=== PATIENT | female | born 1950 | race Caucasian/White ===

== ENCOUNTER 2018-07-19 08:36 | Day surgery (SDC) | payer MEDICARE, MEDICAID ==
[2018-07-15 17:12] LABS: ALBUMIN 4.2 G/DL (3.4-5.0); ALBUMIN/GLOBULIN RATIO 1.2 (1.1-1.5); ALKALINE PHOSPHATASE 149 IU/L (46-116); BLOOD UREA NITROGEN 15 MG/DL (7-18); BUN/CREATININE RATIO 16.9 (6.6-38.0); CHLORIDE 96 MMOL/L (99-107); CREATININE 0.89 MG/DL (0.40-0.90); PRE OP ALT 23 U/L (30-65); PRE OP ANION GAP 13 (8-16); PRE OP AST 25 U/L (10-37); PRE OP BILIRUB, TOTAL 0.3 MG/DL (0.0-1.0); PRE OP GLUCOSE 77 MG/DL (70-104); PRE OP POTASSIUM 3.8 MMOL/L (3.4-5.1); PRE OP SODIUM 132 MMOL/L (135-145); TOTAL CARBON DIOXIDE 23.3 MMOL/L (24-32); TOTAL PROTEIN 7.8 G/DL (6.4-8.2); eGFR 63 ML/MIN
[2018-07-15 17:15] LABS: BASOPHILS # (AUTO) 0.1 X10'3 (0-0.2); BASOPHILS % (AUTO) 1.2 % (0-1); EOSINOPHILS # (AUTO) 0.1 X10'3 (0-0.9); EOSINOPHILS % (AUTO) 2.3 % (0-6); LYMPHOCYTES # (AUTO) 1.8 X10'3 (1.1-4.8); LYMPHOCYTES % (AUTO) 29.1 % (21-51); MEAN CORPUSCULAR HEMOGLOBIN 34.4 PG (27.0-31.0); MEAN CORPUSCULAR HGB CONC 34.2 % (33.0-36.5); MEAN CORPUSCULAR VOLUME 100.8 FL (78-98); MEAN PLATELET VOLUME 7.3 FL (7.4-10.4); MONOCYTES # (AUTO) 0.7 X10'3 (0-0.9); MONOCYTES % (AUTO) 11.8 % (2-12); NEUTROPHILS # (AUTO) 3.5 X10'3 (1.8-7.7); NEUTROPHILS % (AUTO) 55.6 % (42-75); PRE OP HEMATOCRIT 39.3 % (35.0-45.0); PRE OP HEMOGLOBIN 13.4 g/dL (12.0-16.0); PRE OP PLATELET COUNT 305 X10'3 (140-440); RED CELL DISTRIBUTION WIDTH 12.5 % (11.5-14.5)
[~2018-07-19] VITALS: Ht 163.8 cm; Wt 49.8 kg
[2018-07-19] VITALS (17 sets, daily range): BP systolic 143–172; BP diastolic 58–82
[~2018-07-19 08:36] MED LIST: AMLO2.5T2 PO; CODE1CAP35 PO; FLUO20CA39 PO; FLUT16SP2 BOTHNARES; GABA-532 PO; LEVO175T2 PO; MONT10TA24 PO; TRAZ-219 PO; albuterol 2.5 MG/3 ML nebule NEB ONE; ceFOXitin 2 GM ADDvantage bag 100 ML IV ONE; famotidine 20mg tablet PO ONE; ringers solution, lacted 1,000 ML IV SCH
[2018-07-19] MEDS ORDERED: ringers solution, lacted 1,000 ML IV SCH ×2 (09:02→12:15)
[2018-07-19] MEDS ORDERED: hydrALAZINE 20mg/ml inj. IV PRN (09:05)
[2018-07-19] MEDS ORDERED: fentaNYL/PF 50MCG/1 ML 2ML syringe IV PRN ×2 (09:05)
[2018-07-19] MEDS ORDERED: ondansetron/PF 4mg/2ml inj IV PRN ×2 (09:05→12:15)
[2018-07-19] MEDS ORDERED: morphine 4 MG/ML inj SYRINge IV PRN ×2 (09:05)
[2018-07-19] MEDS ORDERED: labetalol 20mg/4ml (5mg/ml) syringe IV PRN (09:05)
[2018-07-19] MEDS ORDERED: PANT-47 PO (10:04)
[2018-07-19] MEDS ORDERED: ATRIN IH (10:06)
[2018-07-19] MEDS ORDERED: FLUT1DIS4 INH (10:07)
[2018-07-19] MEDS ORDERED: ATRIN INH (10:10)
[2018-07-19] MEDS ORDERED: clindamycin phosphate 40gm vag cream ONE (10:44)
[2018-07-19] MEDS ORDERED: ceFAZolin 1000mg inj ONE (10:44)
[2018-07-19] MEDS ORDERED: vasoPRESSIN 20 units/ml inj. ONE (10:44)
[2018-07-19] MEDS ORDERED: fluoroscein sod 10% (100mg/ml) 5ml vial ONE (11:07)
[2018-07-19] MEDS ORDERED: sevoflurane 250ml liquid IH ONE (11:07)
[2018-07-19] MEDS ORDERED: dexamethasone sod phosphate 10mg/ml inj ONE (11:07)
[2018-07-19] MEDS ORDERED: fentaNYL/PF 50MCG/1 ML 2ML syringe ONE ×2 (11:10→11:46)
[2018-07-19] MEDS ORDERED: midazolam 2 mg/2 ml injection ONE (11:10)
[2018-07-19] MEDS ORDERED: propofol inj 20 ML IV ONE ×2 (11:11→11:48)
[2018-07-19] MEDS ORDERED: LIDOcaine 2% (20mg/ml) 5ml vial ONE (11:11)
[2018-07-19] MEDS ORDERED: ondansetron/PF 4mg/2ml inj ONE (11:27)
[2018-07-19] MEDS ORDERED: ketorolac tromethamine 15mg/ml inj. IV PRN (12:15)
[2018-07-19] MEDS ORDERED: naloxone 0.4 mg/ml inj IV PRN (12:15)
[2018-07-19] MEDS ORDERED: temazepam 15mg capsule PO PRN (12:15)
[2018-07-19] MEDS ORDERED: HYDROcodone/acetaminophen 5mg/325mg tablet PO PRN (12:15)
[2018-07-19] MEDS ORDERED: CADD PCA waste documentation MC PRN (12:15)
[2018-07-19] MEDS ORDERED: normal saline 500ml IV soln 500 ML IV PRN (12:15)
[2018-07-19] MEDS ORDERED: diphenhydrAMINE 50 mg/ml inj IV PRN (12:15)
[2018-07-19] MEDS: HYDROmorphone/NS 1 mg/ml CADD 50 ML IV SCH ×3 (12:46→17:00)
[2018-07-19] MEDS: gabapentin 300mg capsule PO SCH ×2 (16:19→23:04)
[2018-07-19] MEDS ORDERED: BUDESONIDE 0.25 MG/2 ML AMPUL.NEB IH SCH (20:00)
[2018-07-19] MEDS: traZODone 50mg tablet PO SCH ×2 (20:48→23:04)
[2018-07-19] MEDS: ketorolac tromethamine 15mg/ml inj. IM PRN (20:49)
[2018-07-19] MEDS ORDERED: SALMETEROL IH SCH (21:15)
[2018-07-19] MEDS ORDERED: FLUTICASONE IH SCH (21:15)
[2018-07-19] MEDS: HYDROcodone/acetaminophen 5mg/325mg tablet PO PRN (21:26)
[2018-07-19] MEDS: IPRATROPIUM BROMIDE IH SCH (21:39)
[2018-07-20 00:26] VITALS: BP 138/71
[2018-07-20] MEDS: ketorolac tromethamine 15mg/ml inj. IM PRN (03:16)
[2018-07-20 04:00] VITALS: BP 140/72
[2018-07-20] MEDS: HYDROcodone/acetaminophen 5mg/325mg tablet PO PRN ×2 (05:00→09:50)
[2018-07-20 05:52] LABS: BASOPHILS # (AUTO) 0.1 X10'3 (0-0.2); BASOPHILS % (AUTO) 0.7 % (0-1); EOSINOPHILS # (AUTO) 0.2 X10'3 (0-0.9); EOSINOPHILS % (AUTO) 3.1 % (0-6); HEMATOCRIT 35.4 % (35.0-45.0); HEMOGLOBIN 12.5 g/dl (12.0-16.0); LYMPHOCYTES # (AUTO) 2.2 X10'3 (1.1-4.8); LYMPHOCYTES % (AUTO) 29.7 % (21-51); MEAN CORPUSCULAR HEMOGLOBIN 35.3 PG (27.0-31.0); MEAN CORPUSCULAR HGB CONC 35.3 % (33.0-36.5); MEAN CORPUSCULAR VOLUME 99.9 FL (78-98); MONOCYTES # (AUTO) 0.8 X10'3 (0-0.9); MONOCYTES % (AUTO) 10.7 % (2-12); NEUTROPHILS # (AUTO) 4.2 X10'3 (1.8-7.7); NEUTROPHILS % (AUTO) 55.8 % (42-75); PLATELET COUNT 268 X10'3 (140-440); RED BLOOD COUNT 3.54 X10'6 (4.20-5.60); RED CELL DISTRIBUTION WIDTH 12.7 % (11.5-14.5); WHITE BLOOD COUNT 7.5 X10'3 (4.5-11.0)
[2018-07-20] MEDS ORDERED: levoTHYROXINE 25mcg tablet PO SCH (07:00)
[2018-07-20] MEDS: IPRATROPIUM BROMIDE IH SCH (07:30)
[2018-07-20] MEDS: gabapentin 300mg capsule PO SCH (07:31)
[2018-07-20 08:00] VITALS: BP 128/84
[2018-07-20] MEDS ORDERED: pantoprazole 40mg Tablet.DR PO SCH (08:00)
[2018-07-20] MEDS ORDERED: fluticasone nasal spray 16GM bottle NS SCH (08:00)
[2018-07-20] MEDS ORDERED: FLUoxetine 20mg capsule PO SCH (08:00)
[2018-07-20] MEDS ORDERED: montelukast 10mg tablet PO SCH (08:00)
[2018-07-20] MEDS ORDERED: amLODIPine 2.5mg tablet PO SCH (08:00)
== END 2018-07-20 11:13 | disposition home or self-care (01) ==
LOC: PAS 08:36 → SUR 3N 12:15 → PAS 07-20 11:13
PROVIDERS: ATTEND Specialist
DX: N89.4 Leukoplakia of vagina (principal); N81.11 Cystocele, midline; N39.46 Mixed incontinence; M19.90 Unspecified osteoarthritis, unspecified site; J45.998 Other asthma; G43.909 Migraine, unspecified, not intractable, without status migrainosus; J43.9 Emphysema, unspecified; I25.2 Old myocardial infarction; I10 Essential (primary) hypertension; E03.9 Hypothyroidism, unspecified; F10.21 Alcohol dependence, in remission; K21.9 Gastro-esophageal reflux disease without esophagitis; Z86.74 Personal history of sudden cardiac arrest; Z91.048 Other nonmedicinal substance allergy status; Z87.442 Personal history of urinary calculi; Z79.51 Long term (current) use of inhaled steroids; Z90.711 Acquired absence of uterus with remaining cervical stump; Z86.73 Personal history of transient ischemic attack (TIA), and cerebral infarction without residual deficits; Z79.01 Long term (current) use of anticoagulants; Z86.14 Personal history of Methicillin resistant Staphylococcus aureus infection; Z86.19 Personal history of other infectious and parasitic diseases; Z90.49 Acquired absence of other specified parts of digestive tract; Z90.710 Acquired absence of both cervix and uterus; Z79.891 Long term (current) use of opiate analgesic; Z79.2 Long term (current) use of antibiotics; Z98.890 Other specified postprocedural states; Z79.899 Other long term (current) drug therapy
CPT/HCPCS: 36415; 57240; 57288; 71046; 80053; 85025; 85610; 85730; 86885; 86900; 86901; 94640; 94760; A4315; A4355; C1771; J0690; J0694; J1100; J1170; J1200; J1885; J2001; J2250; J2405; J2704; J3010; J3490; J7030; J7120; 88302; A6250; A7000

== ENCOUNTER 2019-01-31 11:56 | Emergency (ER) | payer MEDICARE, MEDICAID ==
[~2019-01-31] VITALS: Ht 162.6 cm; Wt 48.0 kg
[~2019-01-31 11:56] MED LIST changes: +ATRIN INH; +FLUT1DIS4 INH; +PANT-47 PO; -albuterol 2.5 MG/3 ML nebule NEB ONE; -ceFOXitin 2 GM ADDvantage bag 100 ML IV ONE; -famotidine 20mg tablet PO ONE; -ringers solution, lacted 1,000 ML IV SCH
[2019-01-31] MEDS ORDERED: glucagon, human recombinant 1mg kit IV ONE (12:20)
[2019-01-31] MEDS ORDERED: ondansetron/PF 4mg/2ml inj IV ONE (12:20)
[2019-01-31] MEDS ORDERED: nitroGLYCERIN 0.4mg SUBLingual tab SL PRN (12:25)
[2019-01-31 13:35] VITALS: BP 134/92
[2019-01-31] MEDS ORDERED: MIDAZolam 5mg/5ml vial ONE ×2 (13:40→13:41)
[2019-01-31] MEDS ORDERED: fentaNYL/PF 50MCG/1 ML 2ML syringe ONE (13:40)
[2019-01-31] MEDS ORDERED: LIDOcaine Viscous 15ml cup ONE (13:41)
[2019-01-31 14:10] VITALS: BP 164/78
[2019-01-31 14:20] VITALS: BP 158/87
[2019-01-31 14:30] VITALS: BP 159/95
[2019-01-31 14:35] VITALS: BP 168/88
[2019-01-31 15:27] VITALS: BP 142/71
== END 2019-01-31 15:25 | disposition home or self-care (01) ==
LOC: ER 11:56
DX: T18.128A Food in esophagus causing other injury, initial encounter (principal); I10 Essential (primary) hypertension; J44.9 Chronic obstructive pulmonary disease, unspecified; E03.9 Hypothyroidism, unspecified; G89.29 Other chronic pain; Z87.891 Personal history of nicotine dependence; Z86.73 Personal history of transient ischemic attack (TIA), and cerebral infarction without residual deficits; Z79.899 Other long term (current) drug therapy; X58.XXXA Exposure to other specified factors, initial encounter; Y93.89 Activity, other specified; Y92.89 Other specified places as the place of occurrence of the external cause; Y99.8 Other external cause status
CPT/HCPCS: 43239; 43247; 96374; 96375; 99152; 99285; J1610; J2250; J2405; J3010; J7030; 88305; A4620

== ENCOUNTER 2020-02-12 15:22 | Emergency (ER) | payer MEDICARE, MEDICAID ==
[~2020-02-12] VITALS: Ht 162.6 cm; Wt 60.0 kg
[~2020-02-12 15:22] MED LIST changes: -MONT10TA24 PO; +MONT10TA26 PO; -TRAZ-219 PO; +TRAZ-256 PO
[2020-02-12 17:22] LABS: BASOPHILS # (AUTO) 0.1 X10'3 (0-0.2); BASOPHILS % (AUTO) 0.6 % (0-1); EOSINOPHILS # (AUTO) 0.3 X10'3 (0-0.9); EOSINOPHILS % (AUTO) 2.5 % (0-6); HEMATOCRIT 30.9 % (35.0-45.0); HEMOGLOBIN 10.2 g/dl (12.0-16.0); LYMPHOCYTES # (AUTO) 1.7 X10'3 (1.1-4.8); LYMPHOCYTES % (AUTO) 14.2 % (21-51); MEAN CORPUSCULAR HEMOGLOBIN 31.6 PG (27.0-31.0); MEAN CORPUSCULAR HGB CONC 33.1 g/dL (33.0-36.5); MEAN CORPUSCULAR VOLUME 95.5 FL (78-98); MONOCYTES % (AUTO) 8.6 % (2-12); NEUTROPHILS # (AUTO) 8.6 X10'3 (1.8-7.7); NEUTROPHILS % (AUTO) 74.1 % (42-75); PLATELET COUNT 312 X10'3 (140-440); RED BLOOD COUNT 3.23 X10'6 (4.20-5.60); RED CELL DISTRIBUTION WIDTH 15.4 % (11.5-14.5); WHITE BLOOD COUNT 11.6 X10'3 (4.5-11.0)
[2020-02-12 17:34] LABS: ALANINE AMINOTRANSFERASE 18 U/L (12-78); ALBUMIN 3.1 G/DL (3.4-5.0); ALBUMIN/GLOBULIN RATIO 0.9 (1.1-1.5); ALKALINE PHOSPHATASE 156 IU/L (46-116); ANION GAP 7 (8-16); ASPARTATE AMINO TRANSFERASE 19 U/L (10-37); BILIRUBIN,TOTAL 0.3 MG/DL (0.1-1.0); BLOOD UREA NITROGEN 12 MG/DL (7-18); CALCIUM 8.2 MG/DL (8.5-10.1); CHLORIDE 103 MMOL/L (99-107); CREATININE 0.86 MG/DL (0.40-0.90); GLUCOSE 88 MG/DL (70-104); POTASSIUM 3.7 MMOL/L (3.5-5.1); SODIUM 136 MMOL/L (135-145); TOTAL CARBON DIOXIDE 25.7 MMOL/L (24-32); TOTAL PROTEIN 6.6 G/DL (6.4-8.2); eGFR 65 ML/MIN
[2020-02-12] MEDS ORDERED: IPRA3AMP9 IH (18:17)
[2020-02-12] MEDS ORDERED: AZIT-31 PO (18:17)
[2020-02-12] MEDS ORDERED: GUAI120L55 PO (18:17)
[2020-02-12] MEDS ORDERED: PRED10TA23 PO (18:17)
[2020-02-12] MEDS ORDERED: predniSONE 20 mg tablet PO ONE (18:20)
[2020-02-12 18:46] VITALS: BP 136/83
== END 2020-02-12 18:55 | disposition home or self-care (01) ==
LOC: ER 15:23
DX: J44.1 Chronic obstructive pulmonary disease with (acute) exacerbation (principal); I10 Essential (primary) hypertension; G89.29 Other chronic pain; Z86.73 Personal history of transient ischemic attack (TIA), and cerebral infarction without residual deficits; Z79.2 Long term (current) use of antibiotics; Z79.899 Other long term (current) drug therapy
CPT/HCPCS: 36415; 71045; 80053; 85025; 99284; J7512

== ENCOUNTER 2021-04-18 15:15 | Emergency (ER) | payer MEDICARE, MEDICAID ==
[~2021-04-18] VITALS: Ht 162.6 cm; Wt 54.7 kg
[~2021-04-18 15:15] MED LIST changes: +GUAI120L55 PO; +IPRA3AMP9 IH; -MONT10TA26 PO; +MONT10TA32 PO
[2021-04-18 16:22] LABS: BASOPHILS # (AUTO) 0.1 X10'3 (0-0.2); BASOPHILS % (AUTO) 1.4 % (0-1); EOSINOPHILS # (AUTO) 0.2 X10'3 (0-0.9); EOSINOPHILS % (AUTO) 3.1 % (0-6); HEMATOCRIT 36.7 % (35.0-45.0); HEMOGLOBIN 12.1 g/dl (12.0-16.0); LYMPHOCYTES # (AUTO) 2.2 X10'3 (1.1-4.8); LYMPHOCYTES % (AUTO) 27.7 % (21-51); MEAN CORPUSCULAR HEMOGLOBIN 31.9 PG (27.0-31.0); MEAN CORPUSCULAR HGB CONC 32.8 g/dL (33.0-36.5); MEAN CORPUSCULAR VOLUME 97.2 FL (78-98); MEAN PLATELET VOLUME 7.2 FL (7.4-10.4); NEUTROPHILS # (AUTO) 4.3 X10'3 (1.8-7.7); NEUTROPHILS % (AUTO) 54.8 % (42-75); PLATELET COUNT 404 X10'3 (140-440); RED BLOOD COUNT 3.78 X10'6 (4.20-5.60); RED CELL DISTRIBUTION WIDTH 15.3 % (11.5-14.5); WHITE BLOOD COUNT 7.8 X10'3 (4.5-11.0)
[2021-04-18] MEDS ORDERED: CEPH250T PO (16:32)
[2021-04-18] MEDS ORDERED: DOXY100C76 PO (16:32)
[2021-04-18 16:33] LABS: ALANINE AMINOTRANSFERASE 21 U/L (12-78); ALBUMIN 3.5 G/DL (3.4-5.0); ALKALINE PHOSPHATASE 129 IU/L (46-116); ANION GAP 9 (8-16); ASPARTATE AMINO TRANSFERASE 18 U/L (10-37); BILIRUBIN,TOTAL 0.3 MG/DL (0.1-1.0); BLOOD UREA NITROGEN 12 MG/DL (7-18); BUN/CREATININE RATIO 14.1 (6.6-38.0); CALCIUM 8.3 MG/DL (8.5-10.1); CHLORIDE 100 MMOL/L (99-107); CREATININE 0.85 MG/DL (0.40-0.90); GLUCOSE 96 MG/DL (70-104); POTASSIUM 4.6 MMOL/L (3.5-5.1); SODIUM 136 MMOL/L (135-145); TOTAL CARBON DIOXIDE 26.8 MMOL/L (24-32); TOTAL PROTEIN 7.1 G/DL (6.4-8.2); eGFR 66 ML/MIN
[2021-04-18] MEDS ORDERED: ALBU6.7H9 INH (16:33)
[2021-04-18 16:43] VITALS: BP 153/62
== END 2021-04-18 17:15 | disposition home or self-care (01) ==
LOC: ER 15:16
DX: J18.9 Pneumonia, unspecified organism (principal); R06.02 Shortness of breath; R05 Cough; R09.89 Other specified symptoms and signs involving the circulatory and respiratory systems; I10 Essential (primary) hypertension; J44.9 Chronic obstructive pulmonary disease, unspecified; E05.90 Thyrotoxicosis, unspecified without thyrotoxic crisis or storm; G89.29 Other chronic pain; Z86.73 Personal history of transient ischemic attack (TIA), and cerebral infarction without residual deficits; Z88.1 Allergy status to other antibiotic agents; Z79.2 Long term (current) use of antibiotics; Z79.899 Other long term (current) drug therapy
CPT/HCPCS: 36415; 71045; 80053; 85025; 93005; 99285

== ENCOUNTER 2022-01-16 14:36 | Emergency (ER) | payer MEDICARE, MEDICAID ==
[~2022-01-16] VITALS: Ht 162.6 cm; Wt 57.0 kg
[~2022-01-16 14:36] MED LIST changes: +ALBU6.7H9 INH; +MONT-40 PO; -MONT10TA32 PO
[2022-01-16 14:51] VITALS: BP 142/58
--- NOTE | 2022-01-16 16:24 | NUR ---
COVID SWAB SENT TO LAB
[2022-01-16] MEDS ORDERED: DOXY100C43 PO (16:25)
[2022-01-16] MEDS ORDERED: PRED20TA PO (16:26)
== END 2022-01-16 17:04 | disposition home or self-care (01) ==
LOC: ER 14:37
DX: J20.9 Acute bronchitis, unspecified (principal); Z20.822 Contact with and (suspected) exposure to COVID-19; R11.2 Nausea with vomiting, unspecified; I48.91 Unspecified atrial fibrillation; I10 Essential (primary) hypertension; J44.9 Chronic obstructive pulmonary disease, unspecified; G89.29 Other chronic pain; E05.90 Thyrotoxicosis, unspecified without thyrotoxic crisis or storm; Z87.19 Personal history of other diseases of the digestive system; Z88.8 Allergy status to other drugs, medicaments and biological substances; Z79.899 Other long term (current) drug therapy
CPT/HCPCS: 71045; 87635; 99284; C9803

== ENCOUNTER 2022-04-14 19:11 | Emergency (ER) | payer MEDICARE, MEDICAID ==
[~2022-04-14] VITALS: Ht 162.6 cm; Wt 53.6 kg
[2022-04-14 20:14] VITALS: BP 161/58
[2022-04-14] MEDS ORDERED: silver sulfadiazine cream 400gm jar TP SCH (22:05)
[2022-04-14] MEDS ORDERED: CEPH-585 PO (22:20)
== END 2022-04-15 07:26 | disposition home or self-care (01) ==
LOC: ER 19:13
DX: T20.26XA Burn of second degree of forehead and cheek, initial encounter (principal); L03.211 Cellulitis of face; I48.91 Unspecified atrial fibrillation; I10 Essential (primary) hypertension; J44.9 Chronic obstructive pulmonary disease, unspecified; G89.29 Other chronic pain; E05.90 Thyrotoxicosis, unspecified without thyrotoxic crisis or storm; Z86.73 Personal history of transient ischemic attack (TIA), and cerebral infarction without residual deficits; Z88.1 Allergy status to other antibiotic agents; Z79.2 Long term (current) use of antibiotics; Z79.899 Other long term (current) drug therapy; X08.8XXA Exposure to other specified smoke, fire and flames, initial encounter; Y93.89 Activity, other specified; Y92.89 Other specified places as the place of occurrence of the external cause; Y99.8 Other external cause status
CPT/HCPCS: 16000; 99283; A6449

== ENCOUNTER 2022-09-25 11:26 | Emergency (ER) | payer MEDICARE, MEDICAID ==
[~2022-09-25] VITALS: Ht 163.8 cm; Wt 47.7 kg
[~2022-09-25 11:26] MED LIST changes: +ALBU6.7H14 INH; -ALBU6.7H9 INH; +CEPH-585 PO
[2022-09-25] MEDS ORDERED: ketoconazole (Nizoral) shampoo TP ONE (17:20)
[2022-09-25] MEDS ORDERED: diphenhydrAMINE 50 mg/ml inj IM ONE (17:35)
== END 2022-09-25 18:12 | disposition home or self-care (01) ==
LOC: ER 11:27
DX: B35.9 Dermatophytosis, unspecified (principal); I48.91 Unspecified atrial fibrillation; I10 Essential (primary) hypertension; J44.9 Chronic obstructive pulmonary disease, unspecified; G89.29 Other chronic pain; E05.90 Thyrotoxicosis, unspecified without thyrotoxic crisis or storm; F17.200 Nicotine dependence, unspecified, uncomplicated; Z86.73 Personal history of transient ischemic attack (TIA), and cerebral infarction without residual deficits; Z88.1 Allergy status to other antibiotic agents; Z79.2 Long term (current) use of antibiotics; Z79.899 Other long term (current) drug therapy
CPT/HCPCS: 96372; 99283; J1200

== ENCOUNTER 2023-06-18 09:13 | Emergency (ER) | payer MEDICARE, MEDICAID ==
[~2023-06-18] VITALS: Ht 162.6 cm; Wt 56.8 kg
[~2023-06-18 09:13] MED LIST changes: +AMLO10TA PO; -AMLO2.5T2 PO; +ASPI-1397 PO; -CEPH-585 PO; +CETI10TA14 PO; +CICL6.6S8 TP; -CODE1CAP35 PO; +DEXL60CA3 PO; +DICL20GE TOP; +ERGO500041 PO; +EZET10TA6 PO; +FIOCOC PO; +FLUT1DIS15 INH; -FLUT1DIS4 INH; -GABA-532 PO; +GABA600T13 PO; -GUAI120L55 PO; -IPRA3AMP9 IH; +IPRA3AMP9 NEB; -LEVO175T2 PO; +LEVO75TA7 PO; +MECL-302 PO; -TRAZ-256 PO; +TRAZ150T78 PO
[2023-06-18 09:15] VITALS: BP 149/82; PULSE 108; RESP 16; TEMP 98; O2SAT 98
[2023-06-18 09:43] LABS: BASOPHILS % (AUTO) 0.6 % (0-1); EOSINOPHILS % (AUTO) 0 % (0-6); HEMATOCRIT 28.6 % (35.0-45.0); HEMOGLOBIN 8.7 g/dl (12.0-16.0); LYMPHOCYTES # (AUTO) 0.8 X10'3 (1.1-4.8); LYMPHOCYTES % (AUTO) 11.2 % (21-51); MEAN CORPUSCULAR HEMOGLOBIN 23.8 PG (27.0-31.0); MEAN CORPUSCULAR HGB CONC 30.3 g/dL (33.0-36.5); MEAN CORPUSCULAR VOLUME 78.7 FL (78-98); MEAN PLATELET VOLUME 7.1 FL (7.4-10.4); MONOCYTES # (AUTO) 0.1 X10'3 (0-0.9); MONOCYTES % (AUTO) 1.3 % (2-12); NEUTROPHILS # (AUTO) 6.1 X10'3 (1.8-7.7); NEUTROPHILS % (AUTO) 86.9 % (42-75); PLATELET COUNT 477 X10'3 (140-440); RED BLOOD COUNT 3.64 X10'6 (4.20-5.60); RED CELL DISTRIBUTION WIDTH 20.5 % (11.5-14.5)
[2023-06-18 09:58] LABS: ALANINE AMINOTRANSFERASE 15 U/L (12-78); ALBUMIN 3.3 G/DL (3.4-5.0); ALBUMIN/GLOBULIN RATIO 0.8 (1.1-1.5); ALKALINE PHOSPHATASE 172 IU/L (46-116); ANION GAP 11 (8-16); ASPARTATE AMINO TRANSFERASE 18 U/L (10-37); BILIRUBIN,TOTAL 0.2 MG/DL (0.1-1.0); BLOOD UREA NITROGEN 13 MG/DL (7-18); BUN/CREATININE RATIO 13.7 (10.0-20.0); CALCIUM 8.4 MG/DL (8.5-10.1); CHLORIDE 100 MMOL/L (99-107); CREATININE 0.95 MG/DL (0.40-0.90); GLUCOSE 165 MG/DL (70-104); SODIUM 140 MMOL/L (135-145); TOTAL CARBON DIOXIDE 29.1 MMOL/L (24-32); TOTAL PROTEIN 7.6 G/DL (6.4-8.2); eCRCL 45 ML/MIN; eGFR 58 ML/MIN
[2023-06-18 10:05] LABS: PRO BRAIN NATRIURETIC PEPTIDE 4435 PG/ML (0-125)
[2023-06-18 12:49] LABS: PLATELET ESTIMATE INCREASED
[2023-06-18 12:50] LABS: ANISOCYTOSIS 3+; ELLIPTOCYTES FEW; HYPOCHROMASIA 1+; MICROCYTOSIS 1+; TEAR DROP CELLS FEW
[2023-06-18] MEDS ORDERED: POTASSIUM BICARB 20meq eff tab 20 MEQ TABLET.EFF PO SCH (13:30)
[2023-06-18] MEDS ORDERED: POTA-207 PO (14:50)
== END 2023-06-18 15:13 | disposition home or self-care (01) ==
LOC: ER 09:13
DX: D64.9 Anemia, unspecified (principal); E87.6 Hypokalemia; I10 Essential (primary) hypertension; J44.9 Chronic obstructive pulmonary disease, unspecified; K21.9 Gastro-esophageal reflux disease without esophagitis; Z88.1 Allergy status to other antibiotic agents; Z79.82 Long term (current) use of aspirin; Z79.899 Other long term (current) drug therapy
CPT/HCPCS: 36415; 71045; 80053; 83880; 84484; 85008; 85025; 93005; 99285

== ENCOUNTER 2025-02-05 16:35 | Emergency (ER) | payer MEDICARE, MEDICAID ==
[~2025-02-05] VITALS: Ht 162.6 cm; Wt 57.1 kg
[~2025-02-05 16:35] MED LIST changes: +APIX5TAB3 PO; +ASPI-1265 PO; -ASPI-1397 PO; -CICL6.6S8 TP; -DICL20GE TOP; +GABA-1405 PO; -GABA600T13 PO
[2025-02-05 16:39] VITALS: BP 110/68; PULSE 71; RESP 16; TEMP 98; O2SAT 98
[2025-02-05] MEDS ORDERED: ACET-3068 PO (18:00)
== END 2025-02-05 18:17 | disposition home or self-care (01) ==
LOC: ER 16:36
DX: S93.601A Unspecified sprain of right foot, initial encounter (principal); I10 Essential (primary) hypertension; I48.91 Unspecified atrial fibrillation; J44.9 Chronic obstructive pulmonary disease, unspecified; Z87.440 Personal history of urinary (tract) infections; Z86.73 Personal history of transient ischemic attack (TIA), and cerebral infarction without residual deficits; Z88.1 Allergy status to other antibiotic agents; W01.0XXA Fall on same level from slipping, tripping and stumbling without subsequent striking against object, initial encounter; Z79.82 Long term (current) use of aspirin; Y93.89 Activity, other specified; Y92.89 Other specified places as the place of occurrence of the external cause; Y99.8 Other external cause status
CPT/HCPCS: 73630; 99283

== ENCOUNTER 2025-05-11 17:11 | Inpatient (IN) | payer MEDICARE, MEDICAID ==
[~2025-05-11] VITALS: Ht 162.6 cm; Wt 51.0 kg
[~2025-05-11 17:11] MED LIST changes: -FLUO20CA39 PO; +FLUO20CA41 PO
--- NOTE | 2025-05-11 18:18 | ELECTROCARDIOGRAPH REPORT ---
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 Sky Reynolds Measurements Intervals [place] Rate: 125 P: 0 [place]: 0 QRS: 73 QRSD: 78 T: 115 QT: 388 QTc: 560 Interpretive Statements Atrial fibrillation Borderline low voltage, extremity leads Borderline repolarization abnormality Prolonged QT interval Baseline wander in lead(s) I,aVL Electronically Signed On 05-12-2025 19:29:[address] Sky Reynolds Please click the below link to view image of tracing.
[2025-05-11 18:26] LABS: MEAN PLATELET VOLUME 6.9 FL (7.4-10.4); RED CELL DISTRIBUTION WIDTH 20.5 % (11.5-14.5)
--- NOTE | 2025-05-11 18:45 | Physician Documentation ---
History of Present Illness ~ Chief Complaint: Shortness of Breath Stated Complaint: SOB Time Seen by MD: 18:04 Primary Medical Doctor: [facility] DR. GRANADOS Mode of Arrival: EMS HPI This is a pleasant, diminutive, 75-year-old female with a known history of COPD, history of atrial fibrillation, recently started on Eliquis after couple of str okes, who presents for evaluation of progressive worsening shortness of breath for the last several days. She states that she attempted to use an oxygen concentrator without success. She has been using her inhaler every 4 hours without any relief. She felt that she is gasping for air and suffocating so she ended up calling the ambulance. She reports chest tightness but no chest pain. Denies any fever or chills. Denies productive cough. Denies any nausea, vomiting or diarrhea, abdominal pain. Medication Reconciliation Allergies: Coded Allergies: levofloxacin (Verified Allergy, Severe, 05/11/25) Scheduled Amlodipine Besylate (Amlodipine Besylate), 1 TABLET PO DAILY, (Reported) Apixaban (Eliquis), 1 TAB PO Q12H Aspirin (Aspirin), 1 TAB PO DAILY Cetirizine HCl (Cetirizine HCl), 1 TAB PO DAILY, (Reported) Dexlansoprazole (Dexilant), 1 CAP PO DAILY, (Reported) Ergocalciferol (Vitamin D2) (Vitamin D2), 1 CAP PO Q7D, (Reported) Ezetimibe (Zetia), 1 TAB PO DAILY, (Reported) Fluoxetine Hcl* (Prozac*), 2 CAP PO QAM, (Reported) Fluticasone Propionate (Flonase), 2 SPRAYS BOTHNARES DAILY, (Reported) Fluticasone/Salmeterol (Advair 500-50 Diskus), 1 PUFFS INH Q12H, (Reported) Ipratropium [place] MDI* (Atrovent MDI*), 2 PUFFS INH DAILY, (Reported) Ipratropium/Albuterol Sulfate (IPRAT-ALBUT 0.5-3(2.5) MG/3 ML nebule), 3 ML NEB QID, (Reported) Levothyroxine Sodium (Levothyroxine Sodium), 1 TAB PO DAILY@0700, (Reported) Montelukast Sodium (Montelukast Sodium), 1 TAB PO DAILY, (Reported) Pantoprazole Sodium (PROTONIX tablet), 40 MG PO DAILY Trazodone Hcl (Trazodone Hcl), 1 TAB PO HS, (Reported) Scheduled PRN Albuterol Sulfate (Proventil Hfa), 2 PUFFS INH Q4H PRN for C/C,WEEZE,CHEST TIGHTNESS, (Reported) Codeine/Butalbit/Acetamin/Caff (Pvczhh-Fuqc-Urnlfxgdenc-Codein), 1 CAP PO Q6H PRN for headache, (Reported) Gabapentin (Gabapentin), 1 TAB PO QID PRN for PRN, (Reported) Meclizine HCl (Meclizine HCl), 1 TAB PO TID PRN for vertigo, (Reported) Past Medical History Past Medical History: CVA/TIA/Stroke, Atrial Fibrillation, Hypertension, COPD, *GI/HEPATOBILIARY*, GERD, Pancreatitis, Hernia, Kidney Stones, Hyperthyroidism, *MUSCULOSKELETAL*, Chronic Pain Past Surgical History: noncontributory Patient History: Patient reports no known family medical history. Alcohol Use: None Drug Use: none Lives with: Family Lives In: Home Occupation: retired Review of Systems ROS 10 point review of systems was performed and unless noted above in HPI is negative for acute process/complaint. Physical Exam Vital Signs: Temperature: 98.9, Source: Oral, Heart Rate: 127, Respiratory Rate: 16, Pulse Oximetry: 99, Weight: 51.000 Oxygen Flow Rate: 2.0 Physical Exam GENERAL: Awake, alert, oriented, GCS 15, no apparent distress, non-toxic appearing, answers questions, follows commands appropriately. examined in bed 11. HEENT: Atraumatic, normocephalic, pupils equal, extraocular muscles intact, sclerae anicteric, mucus membranes moist, oropharynx is clear, no stridor. NECK: supple, full active range of motion, trachea midline, no thyromegaly, no lymphadenopathy, no JVD. CARDIOVASCULAR: regular rate/rhythm, no murmurs/gallops/rubs, Pulses are 2+ in all extremities and symmetric. Capillary refill less than 2 seconds. PULMONARY: Nonlabored, decreased air movement ,no respiratory distress, speaking in full sentences, prolonged expiratory phase and bilateral wheezing, no ronchi, no rales, no accessory muscle use. GASTROINTESTINAL: Soft, non-tender, non-distended, normal active bowel sounds, no organomegaly, no pulsatile masses, no CVA tenderness. NEUROLOGIC: Lucid with normal mental status. Normal facial symmetry. Moves all extremities symmetrically and with purpose. No truncal ataxia. Speech is fluid without evidence of dysarthria or aphasia, no focal deficits appreciated. MUSCULOSKELETAL: There is full range of motion of all extremities. There is no joint pain or joint swelling or joint erythema. There is no muscle pain or tenderness or swelling. EXTREMITIES: warm, well-perfused, no cyanosis, no clubbing, no edema, no acute deformities. Skin: warm, dry, no rashes or lesions, no jaundice, no petechiae orpurpura. No ecchymosis. PSYCHIATRIC: Normal affect, normal insight, normal concentration. Focused exam: [] Progress Results/Orders Results/Orders Orders - ONUR HENSON DO Chest,Single View (05/11/25 18:08) Monitor (05/11/25 18:08) Saline Lock (05/11/25 18:08) Oxygen (05/11/25 18:08) Hs Troponin I W Calculations (05/11/25 21:08) * Rt Notification Q1H (05/11/25 18:27) Diltiazem-Ns 100mg/100ml (Cardizem-Ns 10 (05/11/25 18:30) Lrpc - No Active Bleeding (05/11/25 19:06) Type And Screen (05/11/25 19:06) * Oxygen Saturation Check* (05/11/25 19:06) Transfusion Informed Consent (05/11/25 19:06) Completed Orders - ONUR HENSON DO Chest,Single View (05/11/25 18:08) Cbc/Diff (05/11/25 18:08) BMP (05/11/25 18:08) PBNP (05/11/25 18:08) Electrocardiogram (05/11/25 18:08) Hs Troponin I W Calculations (05/11/25 18:08) Hs Troponin I W Calculations (05/11/25 20:08) Methylprednisolone Sod Succ (Solumedrol (05/11/25 18:30) Albuterol 2.5mg/3ml Nebule (Proventil 2. (05/11/25 18:30) Diltiazem Iv (Cardizem Iv 5mg/Ml Inj.) (05/11/25 18:30) Magnesium Sulf-Water 2g/50ml (Magnesium (05/11/25 18:55) Potassium Bicarb 20meq Eff Tab (Effer-K (05/11/25 19:20) Furosemide 40mg Inj (Lasix Inj) (05/11/25 19:20) Medications Received in ER Medications (Trade) Dose Ordered Sig/Ag Route PRN Reason Start Time Stop Time Status Last Admin Dose Admin (SoluMEDROL 125mg inj) 125 mg ONCE ONCE IV 05/11/25 18:30 05/11/25 18:31 DC 05/11/25 18:55 125 MG (Proventil 2.5 MG/3ML nebule) 10 mg ONCE ONCE NEB 05/11/25 18:30 05/11/25 18:31 DC 05/11/25 19:38 10 MG (Cardizem IV 5mg/ ml inj.) 10 mg ONCE ONCE IV 05/11/25 18:30 05/11/25 18:36 DC 05/11/25 19:00 10 MG Diltiazem HCl 100 ml @ 5 mls/hr Q20H IV 05/11/25 18:30 05/11/25 19:03 10 MLS/HR Magnesium Sulfate 50 ml @ 100 mls/hr ONCE ONCE IV 05/11/25 18:55 05/11/25 19:24 DC 05/11/25 20:01 100 MLS/HR (Lasix inj) 40 mg ONCE ONCE IV 05/11/25 19:20 05/11/25 19:34 DC 05/11/25 19:47 40 MG (Effer-K 20 Meq Tablet Eff) 60 meq ONCE ONCE PO 05/11/25 19:20 05/11/25 19:35 DC 05/11/25 19:48 60 MEQ Vital Signs 05/11/25 05/11/25 05/11/25 05/11/25 17:55 18:33 18:34 19:00 Temp 98.9 Pulse 127 128 Resp 24 16 B/P (MAP) 113/67 Pulse Ox 98 99 O2 Delivery Nasal Cannula* O2 Flow Rate 2.0 2 FiO2 28 05/11/25 05/11/25 05/11/25 05/11/25 19:03 19:10 19:40 19:40 Pulse 122 114 107 Resp 16 22 B/P (MAP) 113/67 113/67 (82) Pulse Ox 99 98 O2 Flow Rate 2.0 6.0 05/11/25 05/11/25 05/11/25 05/11/25 19:45 19:59 20:09 20:18 Pulse 105 109 111 103 Resp 24 24 24 19 B/P (MAP) 125/68 (87) Pulse Ox 98 99 99 98 05/11/25 21:27 Pulse 88 Resp 16 B/P (MAP) 131/88 (102) Pulse Ox 99 O2 Flow Rate 2.0 Laboratory Tests Test 05/11/25 18:16 05/11/25 20:24 05/11/25 21:25 White Blood Count 6.2 Red Blood Count 2.94 L Hemoglobin 6.9 *L Hematocrit 22.2 L Mean Corpuscular Volume 75.6 L Mean Corpuscular Hemoglobin 23.4 L Mean Corpuscular Hemoglobin Concent 31.0 L Red Cell Distribution Width 20.5 H Platelet Count 501 H Mean Platelet Volume 6.9 L Neutrophils (%) (Auto) 66.4 Lymphocytes (%) (Auto) 18.8 L Monocytes (%) (Auto) 12.3 H Eosinophils (%) (Auto) 1.2 Basophils (%) (Auto) 1.3 H Neutrophils # (Auto) 4.1 Lymphocytes # (Auto) 1.2 Monocytes # (Auto) 0.8 Eosinophils # (Auto) 0.1 Basophils # (Auto) 0.1 CBC Comment Platelet Estimate Increased Red Blood Cell Morphology Perf Hypochromasia 1+ Basophilic Stippling Anisocytosis 2+ Microcytosis 1+ Macrocytosis Few Tear Drop Cells Few Elliptocytes Few Sodium Level 129 L Potassium Level 2.8 *L Chloride Level 95 L Carbon Dioxide Level 27.7 Anion Gap 6 L Blood Urea Nitrogen 16 Creatinine 0.86 Estimated GFR/1.73 m2 64 BUN/Creatinine Ratio 18.6 Glucose Level 108 H Calcium Level 7.3 L Troponin I High Sensitivity 57 *H 53 *H Pro-B-Type Natriuretic Peptide 91425 H Albumin 2.7 L Chemistry Comments Troponin I High Sens Percent Delta 7 Troponin I Hi Sens Absolute Change -4 EKG/XRAY/CT/US/VASC/MRI EKG : Additional Comment EKG was obtained and interpreted by myself showing atrial fibrillation, rapid ventricular response, rate of 125, narrow QRS, prolonged QTC of 560. No STEMI. Medical Decision Making Findings Facility Status: ED Holds, E process The plan was discussed with the patient, who demonstrates clear understanding of the plan and is in agreement with the plan unless otherwise noted in the chart. All questions have been answered, all concerns were addressed unless otherwise documented. I was available throughout their ED stay for frequent reassessment and ques tions. Differential Diagnoses (considered and possible or likely): [COPD, CHF, ACS, p neumonia, occult bacteremia, anemia, mitochondrial poisoning, pneumothorax, less likely PE given the fact that patient is already anticoagulated] ??Differential Diagnoses (considered and unlikely, not requiring evaluation currently): [See above] MDM Data Please see [facility] for the following: Independent Historians and external Records Review. Historian: [Patient] Independent Historians: ?[Record review] Medication Management: [Reviewed medication list] Social History and determinants: [Reviewed] Please see the body of the note for the following: Any independent interpretations of ECG, imaging studies. All vitals signs/haemodynamics, ordered tests were independently reviewed and i nterpreted by myself. 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 AFib with a RVR. reviewed and interpreted by me] Additionally notably showing: [Hemodynamics reviewed. The patient tachycardic initially, responded well to antiarrhythmics. No evidence of hypotension. Does not require supplemental oxygen. CBC notable for anemia requiring transfusion. Metabolic panel shows hypokalemia of 2.8. Troponin is elevated likely demand ischemia. BNP is markedly elevated. Lasix was given. Chest x-ray was obtained showing pulmonary edema. I] Tests considered but not ordered include: [CT angiography has been considerably she has a lower likelihood of PE] Social Determinants of Health Impact: [facility] was [facility] [place] to healthcare due to below par ratio of patient to medical providers. [] Comorbid Conditions Impacting Present Evaluation and Care/Treatment: [Anticoagulated patient, COPD] Management Discussions with other Healthcare Providers: [Hospitalist regarding admission] Treatment and Disposition Medication Management (Given or considered): [Blood, Lasix]. See EMR for details Consideration for Hospitalization/Escalation/Deescalation of Care: Admission for observation has been considered, and appears to be necessary for further management and investigation of her anemia, CHF exacerbation, hypoxia ?ED Course:?[Mildly improved. ?Shared decision making:?[] Code status:?FULL Please see the full Electronic Medical Record for full details of nursing documentation, medications list, other records of complete past medical history and conditions, vital signs, laboratory studies, and any radiologic study interpretations by radiologists. Portions of this note were completed using [employer] dictation software and as a result there may exist minor errors in spelling. I have reviewed elements of past family and social history and agree as included in note. Departure Disposition: ADMITTED INPATIENT Admitted to Inpatient Unit: to hospitalist Impression: Primary Impression: Anemia requiring transfusions Additional Impressions: Hypokalemia CHF exacerbation Acute hypoxic respiratory failure Elevated troponin Atrial fibrillation with rapid ventricular response Condition: Stable Referrals: NO PRIMARY CARE PROVIDER (PCP) Critical Care Note Critical Care Note CRITICAL CARE TIME: [55 ] minutes Treatments/Evaluations: Close monitoring and treatment of unstable vital signs, cardiorespiratory, and neurologic status, while maintaining tight balance of fluid, respiratory, and cardiac interventions. This time includes discussing the case with the patient and the patients family. This time does not include all procedures stated elsewhere in this record. This time also includes reviewing old records, labs and radiological studies. This time includes examining and re- examining the patient. Additionally, this time also includes arranging care with admitting and consulting physicians. Signature Scribe Signature: No scribe Attestation: This note accurately reflects clinical decisions, work performed by myself, Onur Henson, ONUR FOX DO May 11, 2025 18:45
[2025-05-11] MEDS: diltiazem 5mg/ml 5ml inj. IV ONE (19:00)
[2025-05-11 19:02] LABS: CREATININE 0.86 MG/DL (0.40-0.90); PRO BRAIN NATRIURETIC PEPTIDE 12257 PG/ML (0-450); TOTAL CARBON DIOXIDE 27.7 MMOL/L (24-32); eCRCL 45 ML/MIN; eGFR 64 ML/MIN
[2025-05-11] MEDS: diltiazem-NS 100mg/100ml 100 ML IV SCH (19:03)
--- NOTE | 2025-05-11 19:08 | RADIOLOGY REPORT ---
CHEST RADIOGRAPH REASON FOR EXAM: Chest pain COMPARISON: DI CHEST,SINGLE VIEW on DOS: 11/26/24, DI CHEST,SINGLE VIEW on DOS: 06/18/23, CHEST,TWO VIEW S on DOS: 03/17/23, CHEST,SINGLE VIEW on DOS: 01/16/22, CHEST,SINGLE VIEW on DOS: 04/18/21 TECHNIQUE: One view of the chest is provided FINDINGS: The cardiomediastinal silhouette is enlarged. There is aortic atherosclerosis. There is dif fuse interstitial prominence. There is pulmonary venous congestion. There are small bilateral pleural effusions. There is no pneumothorax. IMPRESSION: Pulmonary edema. Small bilateral pleural effusions. Correlate clinically for possible cardiac decompe nsation.
[2025-05-11] MEDS: albuterol 2.5 MG/3 ML nebule NEB ONE (19:38)
[2025-05-11 19:40] VITALS: PULSE 107; RESP 22; O2SAT 98
[2025-05-11 19:45] VITALS: PULSE 105; RESP 24; O2SAT 98
[2025-05-11] MEDS: POTASSIUM BICARB 20meq eff tab 20 MEQ TABLET.EFF PO ONE (19:48)
[2025-05-11 19:59] VITALS: PULSE 109; RESP 24; O2SAT 99
[2025-05-11] MEDS: magnesium sulf-water 2g/50mL 50 ML IV ONE (20:01)
[2025-05-11 20:09] VITALS: PULSE 111; RESP 24; O2SAT 99
[2025-05-11 20:44] LABS: PLATELET ESTIMATE INCREASED
[2025-05-11 20:47] LABS: ELLIPTOCYTES FEW
[2025-05-11] MEDS ORDERED: magnesium hydroxide 30ml (MOM) UD suspension PO PRN (23:05)
[2025-05-11] MEDS ORDERED: magnesium sulf-water 4G/100mL 100 ML IV PRN (23:05)
[2025-05-11] MEDS ORDERED: magnesium Cl slow-release 64mg tablet PO PRN (23:05)
[2025-05-11] MEDS ORDERED: magnesium sulf-water 2g/50mL 50 ML IV PRN (23:05)
[2025-05-11] MEDS ORDERED: potassium Cl 20 mEq SR tablet PO PRN ×2 (23:05)
[2025-05-11] MEDS ORDERED: ondansetron/PF 4mg/2ml inj IV PRN (23:05)
[2025-05-11] MEDS ORDERED: mag hydrox/Alum hydrox/simeth 30ml oral suspension PO PRN (23:05)
[2025-05-11] MEDS ORDERED: docusate sod 100mg capsule PO PRN (23:05)
[2025-05-11] MEDS ORDERED: ipratropium/albuterol 3ml nebule NEB PRN (23:25)
--- NOTE | 2025-05-11 23:47 | HISTORY AND PHYSICAL-Residence ---
History & Physical Providers to CC Resident Creating Document: MIRTA WALKER, RES ~ History of Present Illness Primary Medical Doctor: [facility] DR. GRANADOS Reason for Admit\Complaint: Symptomatic anemia and COPD exacerbation History of Present Illness A 75 years old female with a past medical history of COPD, AFib with rapid ventricular rate on apixaban, CVA, HTN, GERD, s/p laparotomy for tangle hernia bowel loops, thyroid disorders, history of substance use presented to ER for acute on chronic shortness of breaths, generalized weakness last week. Patient endorsed that she has been having chronic shortness of breaths but there was noticeable worsening acute shortness of breaths along with generalized weakness tiredness and lethargic feeling over last week. She only needs to use occasional oxygen supply at home but it was demanded last week while she was breathlessness. She ran some fever at home, found to have productive cough with copious amount of white sputum. She had sick contact more than two weeks ago for which she tested COVID that was negative and refused to repeat it again with a reason of barely getting COVID infection. She seems to be noncompliance to prescribe inhalation therapy at home. She does have orthopnea PND but denies for progressive bilateral ankle swelling but endorsed only for the feeling of facial puffiness. She endorsed that she was having chronic left-sided sharp pain lasted for 5-10 minutes every time she has rapid ventricular rate around 170s from her uncontrolled AFib. 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 She reported that she has been having chronic anemia for which she never figured out what the etiology was but had received one time PRBCs transfusion last 6 months ago for her anemia. Her daughter has a similar anemia but it dose not run in her family. She endorsed that she has allergic reaction to the iron both oral and IVs. The last time she had colonoscopy was 6 months ago, however, there was not optimal result because of the poor preparation, and never reported for any abnormal result. She did not remember for any EGD in the past. She denied for any new dyspesia, stomach lumps and generalized lumps and bumps, unintentionally dramatic weight loss in the short period, and loss of appetite, other B symptoms. Allergies: Coded Allergies: levofloxacin (Verified Allergy, Severe, 05/11/25) Home Medications Home Medications Active Eliquis (Apixaban) 5 Mg Tablet 1 Tab PO Q12H 30 Days Aspirin 81 Mg Tab.chew 1 Tab PO DAILY PROTONIX tablet (Pantoprazole Sodium) 40 Mg Tablet.dr 40 Mg PO DAILY 30 Days Reported Dexilant (Dexlansoprazole) 60 Mg Cap.dr.bp 1 Cap PO DAILY 30 Days Zetia (Ezetimibe) 10 Mg Tablet 1 Tab PO DAILY Advair 500-50 Diskus (Salmeterol Xinafoate/Fluticasone) 1 Each Disk.w.dev 1 Puffs INH Q12H Wtmsjo-Ypmy-Rrqwmiohftt-Codein (Acetam/Butalbital/Caffeine/Codeine) 1 Cap Capsule 1 Cap PO Q6H PRN MDD 6 CAPS FALL RISK IPRAT-ALBUT 0.5-3(2.5) MG/3 ML nebule (Ipratropium/Albuterol Sulfate) 3 Ml Ampul.neb 3 Ml NEB QID Amlodipine Besylate 10 Mg Tablet 1 Tablet PO DAILY Proventil Hfa (Albuterol Sulfate) 6.7 Gm Hfa.aer.ad 2 Puffs INH Q4H PRN Vitamin D2 (Ergocalciferol (Vitamin D2)) 1,250 Mcg Capsule 1 Cap PO Q7D Trazodone Hcl 150 Mg Tablet 1 Tab PO HS Gabapentin 600 Mg Tablet 0.5 Tab PO TID PRN Levothyroxine Sodium 75 Mcg Tablet 1 Tab PO DAILY@0700 Meclizine HCl 25 Mg Tablet 1 Tab PO TID PRN Cetirizine HCl 10 Mg Tablet 1 Tab PO DAILY Atrovent MDI* (Ipratropium [place]) 12.9 Gm Aer.w.adap 2 Puffs INH DAILY Montelukast Sodium 10 Mg Tablet 1 Tab PO DAILY Flonase (Fluticasone Propionate) 16 Gm [place].susp 2 Sprays BOTHNARES DAILY Prozac* (Fluoxetine HCl) 20 Mg Capsule 2 Cap PO QAM Past Medical History Past Medical History -COPD -AFib with rapid ventricular rate on apixaban -CVA -HTN -GERD -thyroid disorders -history of substance use Past Surgical History Surgical History Comment - s/p laparotomy for tangle hernia bowel loops Family History Family History: Patient reports no known family medical history. 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 Webre Smoking: Non-Smoker Alcohol Use: None Drug Use: None Lives with: Family Lives In: Home Occupation: retired ROS ROS ROS were reviewed, WNL except for the above-mentioned in HPI Exam Vitals: Vital Signs Date Time Temp Pulse Resp B/P (MAP) Pulse Ox O2 Delivery O2 Flow Rate FiO2 05/11/25 22:25 106 22 128/70 (89) 98 2.0 05/11/25 18:33 Nasal Cannula* 28 05/11/25 17:55 98.9 General: General: Well alert, well oriented, not confused, not agitated, not in acute distress, well cooperated during the physical. Currently on 2 L nasal cannula oxygen supply. HEENT: HEENT: Conjunctive are pink, sclerae clear, no icterus, pupil is equal in both sides, reactive to light, no ear discharge, no pharyngeal erythema or an edema, mouth and lips are dry. Neck: Neck: Supple, no JVD, no lymphadenopathy and thyromegaly. Chest: Lungs:Equal air entry on both lungs, bilateral rhonchi with no basal crackles Cardiovascular: Heart: S1-S2 irregularly irregular rhythm, tachycardia, and, regular rate, no gallops, no rubs, no murmurs Abdomen: Abdomen: No visible peristalsis, Bowel sounds present on auscultation, visible cruciate shape sugrical scar in the middle of the belly, soft, tenderness at the epigastrium and lower belly, no guarding, no rigidity Extremities: Extremities: No obvious deformities, no pitting edema bilaterally, capillary refill intact, able to wiggle toes both sides, peripheral pulsations are intact on both sides Central 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: No focal neurological deficits, no motor and sensory weakness in all 4 extremities, could move all 4 extremities Musculoskeletal: Musculoskeletal: No joint swelling, deformities, inflammations, and no scoliosis and back tenderness Skin: Skin: No active skin lesions and rashes Diagnostic Data Last Recorded Lab Results: 05/11/25181505/11/251815 Additional Plan A 75 years old female with a past medical history of COPD, AFib with rapid ventricular rate on apixaban, CVA, HTN, GERD, s/p laparotomy for tangle hernia bowel loops, thyroid disorders, history of substance use presented to ER for acute on chronic shortness of breaths, generalized weakness last week. # Acute hypoxic respiratory failure # acute on chronic COPD exacerbation -chest x-ray showed Pulmonary edema. Small bilateral pleural effusions. Correlate clinically for possible cardiac decompensation. -continue nasal cannula oxygen supply as needed, to titrate to the baseline -was given one time dose of IV Solu-Medrol 125 mg in ER followed by 60 mg b.i.d. -incentive spirometry -pending sputum C&S -p.o. Mucinex 600 mg b.i.d. -neb DuoNeb q.6 hours as needed, q.4 hours PRN -no leukocytosis, no discoloration of the sputum, no signs of chest infection and pending Procal -Started IV Ceftriaxone and zithromax QD # symptomatic anemia # possible chronic GI blood loss on apixaban aspirin # hypochromic microcytic anemia -was given one time PRBC's transfusion, monitor hemoglobin at least one time per day -pending hematological workup for anemia including iron study, evidences of intravascular hemolysis, HGB electrophoresis to rule out possible hemoglobinopathies causing HMA eg Thalassemia, lead posioning etc. -abnormal peripheral smear including tear drop cells to consider BM pathology including myelofibrosis -pending FOBT, NPO after midnight for the possible GI consultation in the morning -IV Protonix 40 mg b.i.d., hold apixaban and aspirin at the moment, plan to switch to oral -started p.o. vitamin-C 500 mg b.i.d., the patient is allergic to iron therapy -pending cordell tests # AFib with RVR on apixaban # possible tachycardia induced cardiomyopathy # nonspecific elevation of proBNP # T2MI # THyroid disorder # hypertriglyceridemia -was given one time loading dose of IV diltiazem 10 mg in ER followed by LUZ MARINA, plan to switch p.o. 60 mg q.i.d. if stabilized -last time echocardiogram on 11/27/2024 showed mild inferoseptal and basal inferoseptum a SC hypokinesia, LVEF 55-60%, PASP 32 mm Hg, LA mildly dilated -proBNP 99806, no signs of bilateral basal crackles and bilateral pedal edema, hold IV Lasix therapy, was given one time dose of 40 in ER -possible type 2 [place] with a serial troponin level mildly positive for 57-53-43 trending down from possible respiratory distress and symptomatic anemia -nonspecific tachycardia and tachypnea, pending D-dimer, well criteria for PE showed 1.5 low risk -last time TSH was 4.36 on 11/28/2024, continue home medication levothyroxine 77 mcg daily -lipid panel on 11/27/2024 show TG 177 # electrolyte imbalances-hypochloremic hyponatremia and hypokalemia # selective hypoalbuminemia # hyperglycemia -given IV 0.9% NS 50 mL/hr -replace potassium accordingly as per protocol -encourage protein diet, pending UA -HGB A1c 5.1 on 03/17/2023, pending HGB A1c rechecked CODE STATUS: Full code DVT prophylaxis: SCDs until fully ambulatory Analgesia/sedation: IV morphine as needed Lines/tubes: PIV GI prophylaxis: Protonix Nutrition: NPO after midnight Prognosis: Guarded Disposition: Continue medical management, possible GI evaluation for anemia in a.m., AFib control, monitor blood transfusion, F/up W/pending labs, PT eval and DC plan. Resident MD attestation: Patient was seen, examined and discussed with attending MD, Dr. Leah WALKER MD Internal Medicine Resident, PGY3 [facility] Date of Service: May 11, 2025 Billing Provider: GARCÍA MATHEWS MD Common Visit Codes: [id number] INP/OBS CARE (HIGH) Assessment/Plan Assessment Evaluated patient with the help of residents. Discussed the case with them Reviewed notes by Dr.Tun Mirta TRACY Agree with his assessments and plans I also reviewed labs,radiology notes from other providers. Will stay on the present treatment plans MIRTA WALKER, RES May 11, 2025 23:47 GARCÍA MATHEWS MD May 12, 2025 04:48
[2025-05-12] VITALS (23 sets, daily range): BP systolic 115–159; BP diastolic 61–90; PULSE 61–111; RESP 14–29; TEMP 97.6–98.4; O2SAT 92–98
[2025-05-12 00:01] LABS: % IRON SATURATION 2 % (11-46)
[2025-05-12 00:03] LABS: LACTATE DEHYDROGENASE 309 U/L (81-234)
[2025-05-12 01:00] LABS: APTT 28 SECONDS (22-32); INR 1.2 INR
[2025-05-12] MEDS: ipratropium/albuterol 3ml nebule NEB SCH (03:14)
[2025-05-12] MEDS: normal saline 1000ml 1,000 ML IV SCH (03:37)
[2025-05-12] MEDS: potassium Cl 40MEQ/1/2NS 520ml 520 ML IV PRN (03:38)
[2025-05-12] MEDS: potassium Cl 40MEQ/1/2NS 520ml 520 ML IV ONE (03:39)
[2025-05-12] MEDS: diltiazem-NS 100mg/100ml 100 ML IV SCH (04:14)
[2025-05-12] MEDS: diltiazem-NS 100mg/100ml 100 ML IV ONE (04:14)
[2025-05-12 06:50] LABS: MEAN PLATELET VOLUME 6.9 FL (7.4-10.4); RED CELL DISTRIBUTION WIDTH 20.7 % (11.5-14.5)
[2025-05-12 07:21] LABS: CREATININE 0.84 MG/DL (0.40-0.90); TOTAL CARBON DIOXIDE 29.1 MMOL/L (24-32); eCRCL 46 ML/MIN; eGFR 66 ML/MIN
[2025-05-12] MEDS: levoTHYROXINE 75mcg tablet PO SCH (07:29)
[2025-05-12] MEDS: guaiFENesin ER 600mg tablet PO SCH (07:29)
[2025-05-12] MEDS: CefTRIAXone/D5W-Rocephin 1gm 50 ML IV SCH (07:30)
[2025-05-12] MEDS: azithromycin/NS 500mg/250ml 250 ML IV SCH (07:30)
[2025-05-12] MEDS: fluticasone nasal spray 16GM bottle NS SCH (08:00)
[2025-05-12] MEDS: K and/or MAG REPLACEMENT MC SCH (08:00)
--- NOTE | 2025-05-12 08:29 | PROGRESS NOTE ---
Daily Progress Note Providers to CC No new complaint today, resting comfortably in the bed, no signs of acute bleeding ~ Central Line/PICC still needed: No Smith-Non Protocol Smith Indications Met/Not Met: F/C Indications Not Met Antibiotic Timeout Antibiotic Ordered?: No MRSA Education MRSA Education Provided to pt: No Subjective As above Objective Vital Signs Date Time Temp Pulse Resp B/P (MAP) Pulse Ox O2 Delivery O2 Flow Rate FiO2 05/12/25 08:00 Nasal Cannula 2.0 28 05/12/25 07:28 96 05/12/25 06:00 97.7 18 129/78 (95) 95 Vital signs, stable ,afebrile. Pulse Oximetry reflects adequate oxygenation on 2 L oxygen nasal cannula General: well developed, well nourished. Awake , alert, and oriented x4, resting comfortably in the bed, in no acute distress . Skin: Warm, dry, no pallor, no rash or petechiae. HEENT: Atraumatic, normocephalic, EOMI, anicteric sclera B; pink conjunctiva; PERRLA, normal oropharynx, moist oral and nasal mucosa. Tympanic membrane , nose , throat clear. Neck: Trachea midline. Supple, full range of motion, no JVD, bruit , hepatojugular reflex , lymphadenopathy or masses, or other lesions Cardiac: Regular rhythm, regular rate no murmurs, rubs, or gallops. Normal S1 and S2, no S3 noticed. PMI is normal. Respiratory: Equal breath sounds bilaterally, no tachypnea; lungs clear to auscultation bilaterally, no wheezing ,rub or rales, or crackles. Chest wall is symmetric and without deformity. No signs of trauma. Chest wall is nontender. No signs of respiratory distress. Resonance is normal upon percussion bilaterally. Gastrointestinal: Abdomen symmetric, non-distended, soft, non-tender, normal bowel sounds x4 quadrant, normoactive, no hepatosplenomegaly , no masses , no bruit, no flank pain bilaterally. No voluntary guarding, rebound, or rigidity. No tenderness to percussion. No pulsatile masses. Equal femoral pulses. No Saravia's sign or McBurney point tenderness. Back; no CVA tenderness bilaterally, no deformities. Neck and back are without deformity as well. No tenderness noted on palpation of the spinous processes. Spinous processes are midline. Cervical, thoracic, and lumbar paraspinal muscles are not tender and are without spasm. Musculoskeletal: Extremities, normal range of motion, non-tender, muscle strength 5/5 x 4. Negative Homans signs bilaterally on lower extremity. Distal pulses full symmetrical, no clubbing, cyanosis , edema. Neurological: Speech is clear, alert, and oriented x 4. No motor or sensory deficit, deep tendon reflexes normal, cerebellar intact. Cranial nerves II-XII intact. Psych: Alert and or appropriate, normal affect. Vascular: Good distal pulses, which are equal x4; capillary refill less than 2 seconds. Lymphatic, no lymphadenopathy. Result Diagram: 05/12/2562205/12/25 06 Coagulation Studies Laboratory Tests Test 05/11/25 23:32 Prothrombin Time 11.9 SECONDS (9.0-12.0) INR International Normalized Ratio 1.2 INR Activated Partial Thromboplast Time 28 SECONDS (22-32) D-Dimer 1.70 MG/L FEU (0-0.50) H D-Dimer Comment Coagulation Comments Problem\Assessment\Plan Assessment/ Plan A 75 years old female with a past medical history of COPD, AFib with rapid ventricular rate on apixaban, CVA, HTN, GERD, s/p laparotomy for tangle hernia bowel loops, thyroid disorders, history of substance use presented to ER for acute on chronic shortness of breaths, generalized weakness last week. # Acute hypoxic respiratory failure # acute on chronic COPD exacerbation -chest x-ray showed Pulmonary edema. Small bilateral pleural effusions. Correlate clinically for possible cardiac decompensation. -continue nasal cannula oxygen supply as needed, to titrate to the baseline -was given one time dose of IV Solu-Medrol 125 mg in ER followed by 60 mg b.i.d. -incentive spirometry -pending sputum C&S -p.o. Mucinex 600 mg b.i.d. -neb DuoNeb q.6 hours as needed, q.4 hours PRN -no leukocytosis, no discoloration of the sputum, no signs of chest infection and pending Procal -Started IV Ceftriaxone and zithromax QD # symptomatic anemia # possible chronic GI blood loss on apixaban aspirin # hypochromic microcytic anemia -was given one time PRBC's transfusion, monitor hemoglobin at least one time per day -pending hematological workup for anemia including iron study, evidences of intravascular hemolysis, HGB electrophoresis to rule out possible hemoglobinopathies causing HMA eg Thalassemia, lead posioning etc. -abnormal peripheral smear including tear drop cells to consider BM pathology including myelofibrosis -pending FOBT -IV Protonix 40 mg b.i.d., hold apixaban and aspirin at the moment, plan to switch to oral -started p.o. vitamin-C 500 mg b.i.d., the patient is allergic to iron therapy -pending cordell tests # AFib with RVR on apixaban # possible tachycardia induced cardiomyopathy # nonspecific elevation of proBNP # T2MI # THyroid disorder # hypertriglyceridemia -was given one time loading dose of IV diltiazem 10 mg in ER followed by LUZ MARINA, plan to switch p.o. 60 mg q.i.d. if stabilized -last time echocardiogram on 11/27/2024 showed mild inferoseptal and basal inferoseptum a [place] hypokinesia, LVEF 55-60%, PASP 32 mm Hg, LA mildly dilated -proBNP 72781, no signs of bilateral basal crackles and bilateral pedal edema, hold IV Lasix therapy, was given one time dose of 40 in ER -possible type 2 [place] with a serial troponin level mildly positive for 57-53-43 trending down from possible respiratory distress and symptomatic anemia -nonspecific tachycardia and tachypnea, pending D-dimer, well criteria for PE showed 1.5 low risk -last time TSH was 4.36 on 11/28/2024, continue home medication levothyroxine 77 mcg daily -lipid panel on 11/27/2024 show TG 177 # electrolyte imbalances-hypochloremic hyponatremia and hypokalemia # selective hypoalbuminemia # hyperglycemia -given IV 0.9% NS 50 mL/hr -replace potassium accordingly as per protocol -encourage protein diet, pending UA -HGB A1c 5.1 on 03/17/2023, pending HGB A1c rechecked CODE STATUS: Full code DVT prophylaxis: SCDs until fully ambulatory Analgesia/sedation: IV morphine as needed Lines/tubes: PIV GI prophylaxis: Protonix Nutrition: Regular diet Prognosis: Guarded Sepsis Screening Reassessment Date: May 12, 2025 Date of Service: May 12, 2025 Billing Provider: REFUGIO SUTTON MD Common Visit Codes: [id number] INP/OBS CARE(HIGH) REFUGIO SUTTON MD May 12, 2025 08:29
[2025-05-12 16:52] LABS: PHOSPHORUS 2.7 MG/DL (2.3-4.5)
--- NOTE | 2025-05-12 17:25 | RADIOLOGY REPORT ---
Indication: GI Bleed; sepsis Technique: CT axial images of the chest abdomen and pelvis are obtained with intravenous contrast. C oronal and sagittal reformats were obtained. Radiation Dose Information: CTDI volume is 10. mGy. Dose-length product is 7 mGy*cm Comparison: None FINDINGS: Trachea patent. No pneumothorax. Pulmonary emphysematous changes. Multifocal pulmonary airspace conso lidation/ nodularity and ground-glass disease. This includes right lower lobe nodular lesion measurin g 11 mm, 8 mm. Bilateral pulmonary tree-in-bud nodularity most pronounced in the right lower lobe. Small bilateral pleural effusions, vlsnl-nhqvtcz-arkq-left. Heart enlarged. Aortopulmonary lymph nodes measuring up to 11 mm. Subcarinal lymph node measuring 14 mm. Pretracheal lymph node measuring 12 mm. Coronary artery calcification disease. No supraclavicular lymphadenopathy. Adrenal glands, spleen and pancreas are unremarkable in shape. Liver is unremarkable in shape. Chol ecystectomy. No hydronephrosis, nephrolithiasis. Moderate size hiatal hernia. Stomach partially distended. Small bowel loops are normal in caliber. Colonic diverticular disease. Moderate volume stool in the colon. Appendix. Abdominal aortic atherosclerotic disease. Bladder distended. No free pelvic fluid. No inguinal lympha denopathy. Soft tissue edema / anasarca. Acute/ subacute right pubic ramus /symphysis and inferior right pubic ramus fractures. Subacute appea ring right sacral ala fracture. IMPRESSION: Colonic diverticular disease. Multifocal pulmonary airspace consolidation / nodularity and ground-glass disease, which can be secon cherelle to infection /inflammatory etiology. This includes pulmonary nodules up to 11 mm. For the nodule s, malignancy can not be ruled out. Recommend follow-up per Fleischner society criteria guidelines. Bilateral pulmonary tree-in-bud nodularity most pronounced within the right lower lobe. Differential considerations include atypical infection, bronchiolitis, aspiration. Small bilateral pleural effusions. Mediastinal lymphadenopathy. Cardiomegaly, coronary artery calcification disease. Moderate size hiatal hernia. Soft tissue edema/ anasarca. Acute/ subacute fracture right pubic ramus. Subacute appearing right sacral alar fracture.
[2025-05-12 23:31] LABS: OCCULT BLOOD STOOL NEGATIVE (Neg)
[2025-05-13] VITALS (14 sets, daily range): BP systolic 92–137; BP diastolic 64–76; PULSE 65–124; RESP 18–23; TEMP 97.2–98.2; O2SAT 92–96
[2025-05-13 06:23] LABS: MEAN PLATELET VOLUME 7.2 FL (7.4-10.4); RED CELL DISTRIBUTION WIDTH 21.3 % (11.5-14.5)
[2025-05-13 06:45] LABS: CREATININE 0.72 MG/DL (0.40-0.90); TOTAL CARBON DIOXIDE 26.7 MMOL/L (24-32); eCRCL 54 ML/MIN; eGFR 79 ML/MIN
[2025-05-13 07:13] LABS: LYMPHOCYTES % (MANUAL) 8.0 % (21-51); MONOCYTES % (MANUAL) 2.0 % (2-12); NEUTROPHILS % (MANUAL) 90.0 % (42-75); PLATELET ESTIMATE INCREASED
--- NOTE | 2025-05-13 10:47 | ELECTROCARDIOGRAPH REPORT ---
[facility] Test Date: 2025-05-13 Test Time: 10:45:59 Pat Name: CINTHYA MCCORMICK Department: [facility] 3S Patient ID: [facility]-[id number] Room: [place] [id number] [address] Gender: F Anesthesiology Resident: TESS : 1950 Requested By: REFUGIO SUTTON Order Number: [id number] Reading MD: Dr. SHIRA Purvis Measurements Intervals [place] Rate: 127 P: -80 DC: 141 QRS: 84 QRSD: 78 T: 86 QT: 361 QTc: 525 Interpretive Statements ? Multifocal atrial tachycardia, Borderline right axis deviation Abnormal T, consider ischemia, anterior leads Prolonged QT interval Electronically Signed On 05-13-2025 13:08:[address] SHIRA Purvis Please click the below link to view image of tracing.
--- NOTE | 2025-05-13 14:17 | RADIOLOGY REPORT ---
EXAM: NM NM LUNGS HISTORY: pe COMPARISON: CT CT CHEST ABDOMEN PELVIS on DOS: 05/12/25, DI CHEST,SINGLE VIEW on DOS: 05/11/25, DI CHEST ,SINGLE VIEW on DOS: 11/26/24 TECHNIQUE: Following the administration of the ventilation agent, standard projections of the lungs were acquired. The same images were repeated after administration of the perfusion agent. Findings: Ventilation images demonstrate homogenous distribution of radiotracer throughout both lungs. Perfusion images demonstrate homogeneous distribution of radiotracer throughout both lungs. No periph eral wedge-shaped moderate or large subsegmental or segmental mismatched perfusion defects to suggest acute pulmonary embolism. Impression: 1. Based on PIOPED criteria, low probability for pulmonary embolism.
--- NOTE | 2025-05-13 16:14 | PROGRESS NOTE ---
Daily Progress Note Providers to CC No new complaint today, resting comfortably in the bed ~ Central Line/PICC still needed: No Smith-Non Protocol Smith Indications Met/Not Met: F/C Indications Not Met Antibiotic Timeout Antibiotic Ordered?: Yes MRSA Education MRSA Education Provided to pt: Yes Subjective As above Objective Vital Signs Date Time Temp Pulse Resp B/P (MAP) Pulse Ox O2 Delivery O2 Flow Rate FiO2 05/13/25 16:10 95 18 Nasal Cannula 2.0 05/13/25 16:04 95 28 05/13/25 15:52 97.4 120/69 (86) Vital signs, stable ,afebrile. Pulse Oximetry reflects adequate oxygenation on 2 L oxygen nasal cannula General: well developed, well nourished. Awake , alert, and oriented x4, resting comfortably in the bed, in no acute distress . Skin: Warm, dry, no pallor, no rash or petechiae. HEENT: Atraumatic, normocephalic, EOMI, anicteric sclera B; pink conjunctiva; PERRLA, normal oropharynx, moist oral and nasal mucosa. Tympanic membrane , nose , throat clear. Neck: Trachea midline. Supple, full range of motion, no JVD, bruit , hepatojugular reflex , lymphadenopathy or masses, or other lesions Cardiac: Regular rhythm, regular rate no murmurs, rubs, or gallops. Normal S1 and S2, no S3 noticed. PMI is normal. Respiratory: Equal breath sounds bilaterally, no tachypnea; lungs clear to auscultation bilaterally, no wheezing ,rub or rales, or crackles. Chest wall is symmetric and without deformity. No signs of trauma. Chest wall is nontender. No signs of respiratory distress. Resonance is normal upon percussion bilaterally. Gastrointestinal: Abdomen symmetric, non-distended, soft, non-tender, normal bowel sounds x4 quadrant, normoactive, no hepatosplenomegaly , no masses , no bruit, no flank pain bilaterally. No voluntary guarding, rebound, or rigidity. No tenderness to percussion. No pulsatile masses. Equal femoral pulses. No Saravia's sign or McBurney point tenderness. Back; no CVA tenderness bilaterally, no deformities. Neck and back are without deformity as well. No tenderness noted on palpation of the spinous processes. Spinous processes are midline. Cervical, thoracic, and lumbar paraspinal muscles are not tender and are without spasm. Musculoskeletal: Extremities, normal range of motion, non-tender, muscle strength 5/5 x 4. Negative Homans signs bilaterally on lower extremity. Distal pulses full symmetrical, no clubbing, cyanosis , edema. Neurological: Speech is clear, alert, and oriented x 4. No motor or sensory deficit, deep tendon reflexes normal, cerebellar intact. Cranial nerves II-XII intact. Psych: Alert and or appropriate, normal affect. Vascular: Good distal pulses, which are equal x4; capillary refill less than 2 seconds. Lymphatic, no lymphadenopathy. Result Diagram: 05/13/25 0552 05/13/25 0552 Coagulation Studies Laboratory Tests Test 05/11/25 23:32 Prothrombin Time 11.9 SECONDS (9.0-12.0) INR International Normalized Ratio 1.2 INR Activated Partial Thromboplast Time 28 SECONDS (22-32) D-Dimer 1.70 MG/L FEU (0-0.50) H D-Dimer Comment Coagulation Comments Problem\Assessment\Plan Assessment/ Plan A 75 years old female with a past medical history of COPD, AFib with rapid ventricular rate on apixaban, CVA, HTN, GERD, s/p laparotomy for tangle hernia bowel loops, thyroid disorders, history of substance use presented to ER for acute on chronic shortness of breaths, generalized weakness last week. # Acute hypoxic respiratory failure # acute on chronic COPD exacerbation -chest x-ray showed Pulmonary edema. Small bilateral pleural effusions. Correlate clinically for possible cardiac decompensation. -continue nasal cannula oxygen supply as needed, to titrate to the baseline -was given one time dose of IV Solu-Medrol 125 mg in ER followed by 60 mg b.i.d. -incentive spirometry -pending sputum C&S -p.o. Mucinex 600 mg b.i.d. -neb DuoNeb q.6 hours as needed, q.4 hours PRN -no leukocytosis, no discoloration of the sputum, no signs of chest infection and pending Procal -Started IV Ceftriaxone and zithromax QD # symptomatic anemia # possible chronic GI blood loss on apixaban aspirin, scheduled for EGD in the morning, NPO after midnight # hypochromic microcytic anemia -was given one time PRBC's transfusion, monitor hemoglobin at least one time per day -pending hematological workup for anemia including iron study, evidences of intravascular hemolysis, HGB electrophoresis to rule out possible hemoglobinopathies causing HMA eg Thalassemia, lead posioning etc. -abnormal peripheral smear including tear drop cells to consider BM pathology including myelofibrosis -pending FOBT -IV Protonix 40 mg b.i.d., hold apixaban and aspirin at the moment, plan to switch to oral -started p.o. vitamin-C 500 mg b.i.d., the patient is allergic to iron therapy -pending cordell tests # AFib with RVR on apixaban, not a candidate for Eliquis, may need Watchman procedure on outpatient basis # possible tachycardia induced cardiomyopathy # nonspecific elevation of proBNP # T2MI # THyroid disorder # hypertriglyceridemia -was given one time loading dose of IV diltiazem 10 mg in ER followed by [facility]INA, plan to switch p.o. 60 mg q.i.d. if stabilized -last time echocardiogram on 11/27/2024 showed mild inferoseptal and basal inferoseptum a MS hypokinesia, LVEF 55-60%, PASP 32 mm Hg, LA mildly dilated -proBNP 90047, no signs of bilateral basal crackles and bilateral pedal edema, hold IV Lasix therapy, was given one time dose of 40 in ER -possible type 2 WA with a serial troponin level mildly positive for 57-53-43 trending down from possible respiratory distress and symptomatic anemia -nonspecific tachycardia and tachypnea, pending D-dimer, well criteria for PE showed 1.5 low risk -last time TSH was 4.36 on 11/28/2024, continue home medication levothyroxine 77 mcg daily -lipid panel on 11/27/2024 show TG 177 # electrolyte imbalances-hypochloremic hyponatremia and hypokalemia # selective hypoalbuminemia # hyperglycemia -given IV 0.9% NS 50 mL/hr -replace potassium accordingly as per protocol -encourage protein diet, pending UA -HGB A1c 5.1 on 03/17/2023, pending HGB A1c rechecked CODE STATUS: Full code DVT prophylaxis: SCDs until fully ambulatory Analgesia/sedation: IV morphine as needed Lines/tubes: PIV GI prophylaxis: Protonix Nutrition: Regular diet Prognosis: Guarded Sepsis Screening Reassessment Date: May 13, 2025 Date of Service: May 13, 2025 Billing Provider: REFUGIO SUTTON MD Common Visit Codes: [id number] INP/OBS CARE(HIGH) REFUGIO SUTTON MD May 13, 2025 16:14
[2025-05-14] VITALS (18 sets, daily range): BP systolic 116–146; BP diastolic 66–96; PULSE 20–106; RESP 17–26; TEMP 97.5–97.8; O2SAT 90–99
[2025-05-14 03:04] LABS: LEUKOCYTE ESTERASE ,URINE NEGATIVE (Neg); NITRITES, URINE NEGATIVE (Neg); OCCULT BLOOD,URINE NEGATIVE (Neg)
[2025-05-14 03:08] LABS: UA COLLECTION TYPE NON-SPECIFIED
[2025-05-14 07:02] LABS: MEAN PLATELET VOLUME 7.0 FL (7.4-10.4); RED CELL DISTRIBUTION WIDTH 22.0 % (11.5-14.5)
[2025-05-14 07:27] LABS: LYMPHOCYTES % (MANUAL) 11.0 % (21-51); MONOCYTES % (MANUAL) 4.0 % (2-12); NEUTROPHILS % (MANUAL) 85.0 % (42-75); PLATELET ESTIMATE INCREASED
[2025-05-14 07:39] LABS: CREATININE 0.68 MG/DL (0.40-0.90); TOTAL CARBON DIOXIDE 29.1 MMOL/L (24-32); eCRCL 57 ML/MIN; eGFR 84 ML/MIN
[2025-05-14] MEDS ORDERED: LIDOcaine 2% Viscous 15ml cup ONE (09:45)
[2025-05-14] MEDS ORDERED: fentaNYL/PF 50MCG/1 ML 2ML syringe ONE (09:46)
[2025-05-14] MEDS ORDERED: MIDAZolam 1 MG/ML 5ML VIAL ONE (09:47)
[2025-05-14] MEDS ORDERED: AMIO100T4 PO (13:28)
--- NOTE | 2025-05-14 16:04 | DISCHARGE SUMMARY ---
Discharge Summary Providers to CC Feels better today asking to be discharged home for emergency family reasons ~ Discharge Summary Assessment COPD Exacerbation acute respiratory failure secondary to hypoxia Anemia , symptomatic, secondary to blood loss Status post EGD today AFib rapid ventricular rate CHF diastolic in exacerbation Non ST-elevation PR type 2 secondary to hypoxia anemia Afib Hypokalemia hyponatremia, Admission Diagnosis: SYMPTOMATIC ANEMIA Admission Diagnosis Comment: COPD Exacerbation acute respiratory failure secondary to hypoxia Anemia , symptomatic, secondary to blood loss Status post EGD today AFib rapid ventricular rate CHF diastolic in exacerbation Non ST-elevation PR type 2 secondary to hypoxia anemia Afib Hypokalemia hyponatremia, Hospital Course DATE OF ADMISSION: May 11, 2025 DATE OF DISCHARGE: May 14, 2025 Discharge Diagnosis\Comment: COPD Exacerbation acute respiratory failure secondary to hypoxia Anemia , symptomatic, secondary to blood loss Status post EGD today AFib rapid ventricular rate CHF diastolic in exacerbation Non ST-elevation PR type 2 secondary to hypoxia anemia Afib Hypokalemia hyponatremia, Operations\Procedures: EGD Consultants: GI doctor Complications: Non Condition on DC: Stable Discharge Summary: A 75 years old female with a past medical history of COPD, AFib with rapid ventricular rate on apixaban, CVA, HTN, GERD, s/p laparotomy for tangle hernia bowel loops, thyroid disorders, history of substance use presented to ER for acute on chronic shortness of breaths, generalized weakness last week.Patient endorsed that she has been having chronic shortness of breaths but there was noticeable worsening acute shortness of breaths along with generalized weakness tiredness and lethargic feeling over last week. She only needs to use occasional oxygen supply at home but it was demanded last week while she was breathlessness. She ran some fever at home, found to have productive cough with copious amount of white sputum. She had sick contact more than two weeks ago for which she tested COVID that was negative and refused to repeat it again with a reason of barely getting COVID infection. She seems to be noncompliance to prescribe inhalation therapy at home. She does have orthopnea PND but denies for progressive bilateral ankle swelling but endorsed only for the feeling of facial puffiness. She endorsed that she was having chronic left-sided sharp pain lasted for 5-10 minutes every time she has rapid ventricular rate around 170s from her uncontrolled AFib. 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 Wing radiation oncologist and never been on rate control agents but only on blood thinner which was started on last 6 months without having any evidence of obvious GI bleeding and subcutaneous and mucosal bleeding. She reported that she has been having chronic anemia for which she never figured out what the etiology was but had received one time PRBCs transfusion last 6 months ago for her anemia. Her daughter has a similar anemia but it dose not run in her family. She endorsed that she has allergic reaction to the iron both oral and IVs. The last time she had colonoscopy was 6 months ago, however, there was not optimal result because of the poor preparation, and never reported for any abnormal result. She did not remember for any EGD in the past. She denied for any new dyspesia, stomach lumps and generalized lumps and bumps, unintentionally dramatic weight loss in the short period, and loss of appetite, other B symptoms. After admission patient was extensively evaluated including by GI doctor, EGD was done, no unusual finding noticed except mild signs of acute gastritis, today she is feeling better asking to be discharged home for emergency family reasons, I recommended to the patient to continue treatment as inpatient, risk of severe complications and explained but patient elected to be discharged, she will be discharged in stable condition, follow-up PCP GI doctor Cardiology in the morning, medication reconciled, return to emergency department if condition worsens, today on physical exam Vital signs, stable ,afebrile. Pulse Oximetry reflects adequate oxygenation. General: well developed, well nourished. Awake , alert, and oriented x4, resting comfortably in the bed, in no acute distress . Skin: Warm, dry, no pallor, no rash or petechiae. HEENT: Atraumatic, normocephalic, EOMI, anicteric sclera B; pink conjunctiva; PERRLA, normal oropharynx, moist oral and nasal mucosa. Tympanic membrane , nose , throat clear. Neck: Trachea midline. Supple, full range of motion, no JVD, bruit , hepatojugular reflex , lymphadenopathy or masses, or other lesions Cardiac: Regular rhythm, regular rate no murmurs, rubs, or gallops. Normal S1 and S2, no S3 noticed. PMI is normal. Respiratory: Equal breath sounds bilaterally, no tachypnea; lungs clear to auscultation bilaterally, no wheezing ,rub or rales, or crackles. Chest wall is symmetric and without deformity. No signs of trauma. Chest wall is nontender. No signs of respiratory distress. Resonance is normal upon percussion bilaterally. Gastrointestinal: Abdomen symmetric, non-distended, soft, non-tender, normal bowel sounds x4 quadrant, normoactive, no hepatosplenomegaly , no masses , no bruit, no flank pain bilaterally. No voluntary guarding, rebound, or rigidity. No tenderness to percussion. No pulsatile masses. Equal femoral pulses. No Saravia's sign or McBurney point tenderness. Back; no CVA tenderness bilaterally, no deformities. Neck and back are without deformity as well. No tenderness noted on palpation of the spinous processes. Spinous processes are midline. Cervical, thoracic, and lumbar paraspinal muscles are not tender and are without spasm. Musculoskeletal: Extremities, normal range of motion, non-tender, muscle strength 5/5 x 4. Negative Homans signs bilaterally on lower extremity. Distal pulses full symmetrical, no clubbing, cyanosis , edema. Neurological: Speech is clear, alert, and oriented x 4. No motor or sensory deficit, deep tendon reflexes normal, cerebellar intact. Cranial nerves II-XII intact. Psych: Alert and or appropriate, normal affect. Vascular: Good distal pulses, which are equal x4; capillary refill less than 2 seconds. Lymphatic, no lymphadenopathy. *Problems/Diagnosis: (1) Acute exacerbation of chronic obstructive airways disease Status: Acute (2) Troponin level elevated Status: Acute (3) Atrial fibrillation (4) CHF exacerbation Status: Acute Total Time Spent on D/C: > 30 Minutes Date of Service: May 14, 2025 Billing Provider: REFUGIO SUTTON MD Common Visit Codes: 98597-THM/OBS DISCH DAY >30min REFUGIO SUTTON MD May 14, 2025 16:04
--- NOTE | 2025-05-15 01:36 | CONSULTATION ---
DATE OF CONSULTATION: 05/14/2025 DICTATING PHYSICIAN: Rip Cruz MD REASON FOR CONSULTATION: Microcytic anemia. HISTORY OF PRESENT ILLNESS: The patient is a 75-year-old lady came in with COPD exacerbation. She was incidentally found to have anemia, which was thought to be symptomatic. Hemoglobin was in the 6 gram-range. The MCV was 75.6, subsequently she was given a unit of packed red blood cells and she has maintained a hemoglobin around 8 grams. Platelet count was 501, which is suggestive of reactive thrombocytosis due to ongoing bleeding. She was found to be Hemoccult negative. She has been feeling better since she has been there. She is completely asymptomatic from the GI standpoint. She denies obvious melena, hematochezia, or hematemesis. She denies taking excessive nonsteroidal anti-inflammatories or aspirin. Denies any other symptoms. PAST MEDICAL HISTORY: Positive for hypertension, COPD and history of CVA. FAMILY HISTORY: Noncontributory. PERSONAL HISTORY: Noncontributory. REVIEW OF SYSTEMS: A 12-point review of systems essentially same as history of present illness. PHYSICAL EXAMINATION: GENERAL: She is awake, alert, appears to be in no apparent distress. She is friendly and cooperative. VITAL SIGNS: Normal. HEART: Normal. LUNGS: Normal. ABDOMEN: Soft, nontender. No masses. No organomegaly. Bowel sounds are present. EXTREMITIES: Reveal no clubbing, cyanosis, or edema. NEUROLOGIC: Cranial nerves bilaterally within normal limits. HEMATOLOGIC: Reveals no anemia, petechia or purpura. PSYCHOLOGIC: Within normal limits. LABORATORY VALUES: Reviewed and as mentioned earlier, came in with hemoglobin of 6.9, platelet count of 501, MCV in the 70 range. Rest of the lab values were essentially unremarkable. CT of the abdomen is essentially unremarkable. IMPRESSION AND RECOMMENDATIONS: Microcytic anemia, need to rule out chronic GI blood loss especially with the reactive thrombocytosis. Bidirectional endoscopic workup is recommended. Etiologies include bleeding lesions like peptic ulcer disease, GI tract neoplastic lesions and GI tract AV vascular lesion like AV malformation. This was discussed in details with the patient. She would be willing to have an endoscopy done and as colonoscopy required fasting and bowel prep, she wants to go home and come back as an outpatient for colonoscopy. We will arrange for a colonoscopy as an outpatient for further evaluation of anemia depending on the findings of endoscopy. Even if we find lesion like a peptic ulcer in the upper GI endoscopic workup today, I would like to rule out lower GI tract lesions because of the significant microcytosis and resulting reactive thrombocytosis and also the microcytosis and hypochromia. The risks and benefits of endoscopy explained, which she understands and wishes to proceed. Further recommendations will be made after the endoscopy. Rip Cruz MD TID: [id number] RECEIPT: [id number]/[id number]
== END 2025-05-14 14:17 | disposition home or self-care (01) | DRG 280 ==
LOC: ER 17:12 → ED HOLD 22:23 → EDBEDREQ 05-12 00:09 → PCU 3S 05-12 01:35
PROVIDERS: ADMIT Internal Medicine Critical Care Medicine; ATTEND Family Medicine
PROC: 30233N1 Transfusion of Nonautologous Red Blood Cells into Peripheral Vein, Percutaneous Approach (ICD-10-PCS; principal; 2025-05-11)
PROC: BW251ZZ Computerized Tomography (CT Scan) of Chest, Abdomen and Pelvis using Low Osmolar Contrast (ICD-10-PCS; 2025-05-12)
PROC: CB121ZZ Planar Nuclear Medicine Imaging of Lungs and Bronchi using Technetium 99m (Tc-99m) (ICD-10-PCS; 2025-05-13)
PROC: 0DB98ZX Excision of Duodenum, Via Natural or Artificial Opening Endoscopic, Diagnostic (ICD-10-PCS; 2025-05-14)
PROC: 0DB78ZX Excision of Stomach, Pylorus, Via Natural or Artificial Opening Endoscopic, Diagnostic (ICD-10-PCS; 2025-05-14)
DX: I11.0 Hypertensive heart disease with heart failure (principal); I50.33 Acute on chronic diastolic (congestive) heart failure; I21.A1 Myocardial infarction type 2; J96.01 Acute respiratory failure with hypoxia; J44.1 Chronic obstructive pulmonary disease with (acute) exacerbation; I48.20 Chronic atrial fibrillation, unspecified; E87.1 Hypo-osmolality and hyponatremia; D50.0 Iron deficiency anemia secondary to blood loss (chronic); K21.9 Gastro-esophageal reflux disease without esophagitis; I48.91 Unspecified atrial fibrillation; E78.00 Pure hypercholesterolemia, unspecified; E87.6 Hypokalemia; E87.8 Other disorders of electrolyte and fluid balance, not elsewhere classified; K29.00 Acute gastritis without bleeding; G89.29 Other chronic pain; E05.90 Thyrotoxicosis, unspecified without thyrotoxic crisis or storm; E88.09 Other disorders of plasma-protein metabolism, not elsewhere classified; R73.9 Hyperglycemia, unspecified; Z86.16 Personal history of COVID-19; Z87.891 Personal history of nicotine dependence; Z87.442 Personal history of urinary calculi; Z91.199 Patient's noncompliance with other medical treatment and regimen due to unspecified reason; Z86.73 Personal history of transient ischemic attack (TIA), and cerebral infarction without residual deficits
CPT/HCPCS: 36415; 36430; 43239; 71045; 71250; 74176; 78582; 80048; 80053; 80076; 81003; 82272; 82550; 82728; 83010; 83036; 83540; 83550; 83615; 83690; 83735; 83880; 84100; 84145; 84466; 84484; 85007; 85008; 85025; 85379; 85610; 85730; 86880; 86885; 86900; 86901; 86920; 87081; 93005; 94640; 94760; 96365; 96366; 96367; 96375; 99152; 99291; A4620; A9539; A9540; G0378; J0456; J0696; J1938; J2250; J2470; J2919; J3010; J3480; J3490; J7030; J7040; J7050; P9016